=== PATIENT | male | born 1930 | race Caucasian/White ===

== ENCOUNTER 2017-11-20 09:23 | Inpatient (IN) | payer MEDICARE, BC ==
--- NOTE | 2017-11-20 10:14 | ED ---
General Adult HPI - General Chief complaint: Recheck/Abnormal Lab/Rx Stated complaint: ABNORMAL LABS Time Seen by Provider: 11/20/17 09:35 Source: patient, RN notes reviewed Mode of arrival: ambulatory Limitations: no limitations - History of Present Illness Initial comments: This is an 87-year-old male presents emergency Department because he was told to come in because his hemoglobin was low. Patient states she's felt fine lately he's been working outside he has not been short of breath and has had no chest pain or palpitations. Patient states he has not been feeling fatigued or weak. Patient states he hasn't seen a doctor for 5 years so he decided to go get a physical exam and when he did they aimee blood and told him to come on over here. Patient denies any black or bloody stools. Patient states he is completely asymptomatic and feels fine. - Related Data Home Medications Medication Instructions Recorded Confirmed Ciprofloxacin HCl [Cipro] 250 mg PO Q12HR 11/20/17 11/20/17 Allergies Allergy/AdvReac Type Severity Reaction Status Date / Time No Known Allergies Allergy Verified 11/20/17 10:31 Review of Systems ROS Statement: Those systems with pertinent positive or pertinent negative responses have been documented in the HPI. ROS Other: All systems not noted in ROS Statement are negative. Past Medical History Past Medical History: Eye Disorder, Hearing Disorder / Deafness Additional Past Medical History / Comment(s): HX OF HEAD INJURY-HIT BY BASEBALL IN HIGH SCHOOL- HAD "CONVULSION" & HAD PIECE OF SKULL REMOVED., ENLARGED PROSTATE, BILATERAL HEARING AIDS, RT CATARACTS & GLAUCOMA. History of Any Multi-Drug Resistant Organisms: None Reported Past Surgical History: Hernia Repair Additional Past Surgical History / Comment(s): INGUINAL HERNIA REPAIR X4. , PIECE OF SKULL REMOVED AFTER HEAD INJURY IN HIGH SCHOOL., LT CATARACT REMOVED Past Anesthesia/Blood Transfusion Reactions: No Reported Reaction Past Psychological History: No Psychological Hx Reported Smoking Status: Never smoker - Past Family History Sister(s) Family Medical History: Cancer Brother(s) Family Medical History: Cancer Additional Family Medical History / Comment(s): PROSTATE CANCER General Exam - General Exam Comments Initial Comments: GENERAL: Patient is well-developed and well-nourished. Patient is nontoxic and well- hydrated and is in no acute distress. ENT: Neck is soft and supple. No significant lymphadenopathy is noted. Oropharynx is clear. Moist mucous membranes. Neck has full range of motion without eliciting any pain. EYES: The sclera were anicteric and conjunctiva were pink and moist. Extraocular movements were intact and pupils were equal round and reactive to light. Eyelids were unremarkable. PULMONARY: Unlabored respirations. Good breath sounds bilaterally. No audible rales rhonchi or wheezing was noted. CARDIOVASCULAR: There is a regular rate and rhythm without any murmurs gallops or rubs. ABDOMEN: Soft and nontender with normal bowel sounds. No palpable organomegaly was noted. There is no palpable pulsatile mass. SKIN: Skin is pale NEUROLOGIC: Patient is alert and oriented x3. Cranial nerves II through XII are grossly intact. Motor and sensory are also intact. Normal speech, volume and content. Symmetrical smile. MUSCULOSKELETAL: Normal extremities with adequate strength and full range of motion. No lower extremity swelling or edema. No calf tenderness. LYMPHATICS: No significant lymphadenopathy is noted PSYCHIATRIC: Normal psychiatric evaluation. Normal interpersonal interactions appears functionally intact in deals appropriately with others. Limitations: no limitations Course Vital Signs 11/20/17 11/20/17 09:32 10:22 Temperature 97.8 F Pulse Rate 69 80 Respiratory 18 18 Rate Blood Pressure 122/49 135/66 O2 Sat by Pulse 100 100 Oximetry Medical Decision Making - Medical Decision Making EKG shows sinus rhythm with occasional PAC at 67 bpm VT interval is 180 QRSs 82 QT interval 400 QTC is 422. Patient's EKG shows no ST segment elevation or depression or T wave abnormalities are noted. Patient's hemoglobin is 4.5. I gave the patient 2 units of packed red blood cells. I spoke with Dr. Araujo admitted the patient I continued to transfusions on the floor. - Lab Data Result diagrams: 11/20/17 10:00 11/20/17 10:00 Lab Results 11/20/17 11/20/17 11/20/17 Range/Units 10:00 10:00 10:00 WBC 4.4 (3.8-10.6) k/uL RBC 3.30 L (4.30-5.90) m/uL Hgb 4.5 L* (13.0-17.5) gm/dL Hct 18.9 L* (39.0-53.0) % MCV 57.3 L (80.0-100.0) fL MCH 13.7 L (25.0-35.0) pg MCHC 23.8 L (31.0-37.0) g/dL RDW 18.6 H (11.5-15.5) % Plt Count 315 (150-450) k/uL PT (9.0-12.0) sec INR (<1.2) APTT (22.0-30.0) sec Sodium 139 (137-145) mmol/L Potassium 4.5 (3.5-5.1) mmol/L Chloride 110 H (98-107) mmol/L Carbon Dioxide 23 (22-30) mmol/L Anion Gap 6 mmol/L BUN 19 (9-20) mg/dL Creatinine 1.07 (0.66-1.25) mg/dL Est GFR (CKD-EPI)AfAm 72 (>60 ml/min/1.73 sqM) Est GFR (CKD-EPI)NonAf 63 (>60 ml/min/1.73 sqM) Glucose 80 (74-99) mg/dL Calcium 8.4 (8.4-10.2) mg/dL Magnesium 2.2 (1.6-2.3) mg/dL Total Bilirubin 0.7 (0.2-1.3) mg/dL AST 13 L (17-59) U/L ALT 25 (21-72) U/L Alkaline Phosphatase 56 (38-126) U/L Total Creatine Kinase 31 L (55-170) U/L Total Protein 5.6 L (6.3-8.2) g/dL Albumin 3.5 (3.5-5.0) g/dL 11/20/17 Range/Units 10:00 WBC (3.8-10.6) k/uL RBC (4.30-5.90) m/uL Hgb (13.0-17.5) gm/dL Hct (39.0-53.0) % MCV (80.0-100.0) fL MCH (25.0-35.0) pg MCHC (31.0-37.0) g/dL RDW (11.5-15.5) % Plt Count (150-450) k/uL PT 11.0 (9.0-12.0) sec INR 1.1 (<1.2) APTT 22.4 (22.0-30.0) sec Sodium (137-145) mmol/L Potassium (3.5-5.1) mmol/L Chloride (98-107) mmol/L Carbon Dioxide (22-30) mmol/L Anion Gap mmol/L BUN (9-20) mg/dL Creatinine (0.66-1.25) mg/dL Est GFR (CKD-EPI)AfAm (>60 ml/min/1.73 sqM) Est GFR (CKD-EPI)NonAf (>60 ml/min/1.73 sqM) Glucose (74-99) mg/dL Calcium (8.4-10.2) mg/dL Magnesium (1.6-2.3) mg/dL Total Bilirubin (0.2-1.3) mg/dL AST (17-59) U/L ALT (21-72) U/L Alkaline Phosphatase (38-126) U/L Total Creatine Kinase (55-170) U/L Total Protein (6.3-8.2) g/dL Albumin (3.5-5.0) g/dL Disposition Clinical Impression: Anemia Disposition: ADMITTED IP TO THIS HOSP Referrals: Stanford Osborne MD [Primary Care Provider] - 1-2 days Time of Disposition: 10:53
[2017-11-20 10:28] LABS: Anisocytosis Slight; Hypochromasia Marked; MCH 13.7 pg (25.0-35.0); MCHC 23.8 g/dL (31.0-37.0); MCV 57.3 fL (80.0-100.0); Mean Platelet Volume 8.6; Microcytosis Marked; Platelet Count 315 k/uL (150-450); RDW 18.6 % (11.5-15.5); WBC 4.4 k/uL (3.8-10.6)
[2017-11-20 10:33] LABS: HGB 4.5 gm/dL (13.0-17.5)
[2017-11-20 10:34] LABS: HCT 18.9 % (39.0-53.0)
[2017-11-20 10:37] LABS: Albumin 3.5 g/dL (3.5-5.0); Calcium 8.4 mg/dL (8.4-10.2); Magnesium 2.2 mg/dL (1.6-2.3); Potassium 4.5 mmol/L (3.5-5.1); Total Bilirubin 0.7 mg/dL (0.2-1.3); Total Protein 5.6 g/dL (6.3-8.2)
[2017-11-20 10:38] LABS: INR 1.1 (<1.2); Partial Thromboplastin Time 22.4 sec (22.0-30.0)
[2017-11-20] MEDS ORDERED: LORazepam 1 MG TAB PO STA (10:42)
[2017-11-20 10:46] LABS: Creatine Kinase 31 U/L (55-170)
[2017-11-20] MEDS ORDERED: SODIUM CHLORIDE 0.9% 1,000 ML IV ONE (10:53)
[2017-11-20 10:59] LABS: Creatine Kinase MB 0.7 ng/mL (0.0-2.4); Troponin I <0.012 ng/mL (0.000-0.034)
[2017-11-20 11:03] LABS: Band Neutrophils % 2 %; Eosinophils # (M) 0.09 k/uL (0-0.7); Large Platelets Present; Lymphocytes # (M) 0.97 k/uL (1.0-4.8); Monocytes # (M) 0.26 k/uL (0-1.0); Myelocytes # (M) 0.04 k/uL (0); Myelocytes % 1 %; Neutrophils % (M) 69 %; Nucleated Red Blood Cells 0 /100 WBC (0-0); Poikilocytosis (M) Present; Polychromasia Present; Target Cells Present; Total Cells Counted 200
[2017-11-20 15:47] LABS: Appearance,Urine Cloudy (Clear); Bilirubin,Urine Negative (Negative); Blood,Urine Trace (Negative); Color,Urine Light Yellow; Glucose,Urine (UA) Negative (Negative); Hyaline Casts,Urine 3 /lpf (0-2); Ketones,Urine Negative (Negative); Leukocyte Esterase,Urine Large (Negative); Mucus,Urine Rare /hpf; Nitrite,Urine Negative (Negative); PH, Urine 6.5 (5.0-8.0); Protein,Urine Negative (Negative); RBC,Urine 15 /hpf (0-5); Specific Gravity,Urine 1.006 (1.001-1.035); Squamous Epithelial Cell,Urine <1 /hpf (0-4); Urobilinogen,Urine <2.0 mg/dL (<2.0)
[2017-11-20 16:21] LABS: Anisocytosis Marked; Basophils # (A) 0.1 k/uL (0-0.2); Basophils % (A) 2 %; Eosinophils # (A) 0.1 k/uL (0-0.7); Eosinophils % (A) 3 %; Hypochromasia Marked; Lymphocytes # (A) 1.1 k/uL (1.0-4.8); Lymphocytes % (A) 27 %; MCH 16.5 pg (25.0-35.0); Mean Platelet Volume 7.8; Microcytosis Marked; Monocytes # (A) 0.6 k/uL (0-1.0); Monocytes % (A) 14 %; Neutrophils % (A) 51 %; Platelet Count 260 k/uL (150-450); Poikilocytosis Marked; RBC 3.77 m/uL (4.30-5.90)
[2017-11-20 16:25] LABS: HGB 6.2 gm/dL (13.0-17.5); RDW 26.8 % (11.5-15.5)
[2017-11-20 16:26] LABS: MCV 63.6 fL (80.0-100.0)
[2017-11-20] MEDS: PANTOPRAZOLE 40 MG/10 ML VIAL IVP SCH (16:30)
[2017-11-20] MEDS ORDERED: FUROSEMIDE 10 MG/ML 2 ML VIAL IV ONE (17:45)
[2017-11-20 19:10] LABS: Iron Saturation 2.31 (15.00-50.00)
[2017-11-20] MEDS ORDERED: LEVOFLOXACIN 500MG-D5W PMX 500 MG in DEXTROSE/WATER 1 100ML.BAG IVPB SCH (21:00)
[2017-11-20 22:19] LABS: Anisocytosis Marked; Basophils # (A) 0.1 k/uL (0-0.2); Basophils % (A) 2 %; Eosinophils # (A) 0.2 k/uL (0-0.7); Eosinophils % (A) 3 %; HCT 26.8 % (39.0-53.0); HGB 7.4 gm/dL (13.0-17.5); Hypochromasia Marked; Lymphocytes # (A) 1.3 k/uL (1.0-4.8); Lymphocytes % (A) 25 %; MCH 18.5 pg (25.0-35.0); MCHC 27.8 g/dL (31.0-37.0); MCV 66.5 fL (80.0-100.0); Mean Platelet Volume 7.3; Microcytosis Marked; Monocytes # (A) 0.6 k/uL (0-1.0); Monocytes % (A) 12 %; Neutrophils % (A) 56 %; Platelet Count 248 k/uL (150-450); Poikilocytosis Marked; RBC 4.02 m/uL (4.30-5.90); WBC 5.3 k/uL (3.8-10.6)
[2017-11-20 22:21] LABS: RDW 26.8 % (11.5-15.5)
--- NOTE | 2017-11-21 00:03 | P.HPIM ---
History of Present Illness H&P Date: 11/20/17 Chief Complaint: Abnormal lab with a low hemoglobin Patient is a 87-year-old male without significant past history and hard of hearing with bilateral hearing aids and cataracts was told to come to ER due to low hemoglobin. Patient was seen by his primary care physician and ordered routine CBC and was found to have a hemoglobin level IV.5. Otherwise Patient states he's felt fine lately he's been working outside he has not been short of breath and has had no chest pain or palpitations. Patient states he has not been feeling fatigued or weak. Patient states he hasn't seen a doctor for 5 years so he decided to go get a physical exam and when he did they aimee blood and told him to come on over here. Patient denies any black or bloody stools. Denied any dysuria or hematuria. Patient states he is completely asymptomatic and feels fine. FOBT is negative. Patient states that intermittently he noticed some dark- colored stools. No recent EGD or colonoscopy. MCV 57.3, RDW 18.6 UA showed large leukocyte esterase and WBCs and WBC clumps. Review of Systems Constitutional: Patient denies any fever or chills . No generalized weakness or weight loss. Abdomen: Patient denied nausea vomiting and diarrhea and abdominal pain. Cardiovascular: Patient denies any chest pain or short of breath no palpitations. Respiratory: patient denied any cough is from production. No shortness of breath Neurologic: Patient denied any numbness or tingling headache. Musculoskeletal: Patient denies any complaints of joint swelling or deformity. Skin: Negative Psychiatric: Negative Endocrine: No heat or cold intolerance. No recent weight gain. Genitourinary: No dysuria or hematuria. All other 14 point ROS negative except the above Past Medical History Past Medical History: Eye Disorder, Hearing Disorder / Deafness Additional Past Medical History / Comment(s): HX OF HEAD INJURY-HIT BY BASEBALL IN HIGH SCHOOL- HAD "CONVULSION" & HAD PIECE OF SKULL REMOVED., ENLARGED PROSTATE, BILATERAL HEARING AIDS, RT CATARACTS & GLAUCOMA. History of Any Multi-Drug Resistant Organisms: None Reported Past Surgical History: Hernia Repair Additional Past Surgical History / Comment(s): INGUINAL HERNIA REPAIR X4. , PIECE OF SKULL REMOVED AFTER HEAD INJURY IN HIGH SCHOOL., LT CATARACT REMOVED Past Anesthesia/Blood Transfusion Reactions: No Reported Reaction Past Psychological History: No Psychological Hx Reported Smoking Status: Never smoker - Past Family History Sister(s) Family Medical History: Cancer Brother(s) Family Medical History: Cancer Additional Family Medical History / Comment(s): PROSTATE CANCER Father Additional Family Medical History / Comment(s): Father was a smoker. He of lung disease at the age of 71 yrs. Mother Family Medical History: No Reported History Additional Family Medical History / Comment(s): Mother was healthy. Medications and Allergies Home Medications Medication Instructions Recorded Confirmed Type Ciprofloxacin HCl [Cipro] 250 mg PO Q12HR 11/20/17 11/20/17 History Allergies Allergy/AdvReac Type Severity Reaction Status Date / Time No Known Allergies Allergy Verified 11/20/17 10:31 Physical Exam Vitals: Vital Signs Temp Pulse Resp BP Pulse Ox 11/20/17 14:12 97.4 F L 62 16 141/62 97 11/20/17 14:01 97.2 F L 66 16 145/68 100 11/20/17 13:51 97.2 F L 64 16 144/69 100 11/20/17 13:19 97.9 F 77 18 161/75 95 11/20/17 12:20 97 F L 63 18 153/72 100 11/20/17 11:50 97.1 F L 69 16 142/66 100 11/20/17 11:40 97.4 F L 69 16 124/59 100 11/20/17 10:22 80 18 135/66 100 11/20/17 09:32 97.8 F 69 18 122/49 100 Intake and Output 11/19/17 11/20/17 11/20/17 22:59 06:59 14:59 Intake Total 310 Balance 310 Intake: Blood Product 310 As-1 Unit 0 [id number] As-1 Unit 310 [id number] Other: Weight 59.874 kg PHYSICAL EXAMINATION: Patient is lying in the bed comfortably, no acute distress, awake alert and oriented.. HEENT: Normocephalic. Neck is supple. Pupils reactive. Nostrils clear. Oral cavity is moist. Ears reveal no drainage. Neck reveals no JVD, carotid bruits, or thyromegaly. CHEST EXAMINATION: Trachea is central. Symmetrical expansion. Lung mondragon clear to auscultation and percussion. CARDIAC: Normal S1, S2 with no gallops. No murmurs ABDOMEN: Soft. Bowel sounds normal. No organomegaly. No abdominal bruits. Extremities: reveal no edema. No clubbing or cyanosis Neurologically awake, alert, oriented x3 with well-coordinated movements. No focal deficits noted Skin: No rash or skin lesions. Psychiatric: Coperative. Nonsuicidal Musculoskeletal: No joint swelling or deformity. Normal range of motion. Results CBC & Chem 7: 11/20/17 21:52 11/20/17 10:00 Labs: Abnormal Lab Results - Last 24 Hours (Table) 11/20/17 11/20/17 11/20/17 Range/Units 10:00 10:00 10:00 RBC 3.30 L (4.30-5.90) m/uL Hgb 4.5 L* (13.0-17.5) gm/dL Hct 18.9 L* (39.0-53.0) % MCV 57.3 L (80.0-100.0) fL MCH 13.7 L (25.0-35.0) pg MCHC 23.8 L (31.0-37.0) g/dL RDW 18.6 H (11.5-15.5) % Lymphocytes # (Manual) 0.97 L (1.0-4.8) k/uL Myelocytes # (Manual) 0.04 H (0) k/uL Chloride 110 H (98-107) mmol/L AST 13 L (17-59) U/L Total Creatine Kinase 31 L (55-170) U/L Total Protein 5.6 L (6.3-8.2) g/dL Crossmatch 11/20/17 Range/Units 10:00 RBC (4.30-5.90) m/uL Hgb (13.0-17.5) gm/dL Hct (39.0-53.0) % MCV (80.0-100.0) fL MCH (25.0-35.0) pg MCHC (31.0-37.0) g/dL RDW (11.5-15.5) % Lymphocytes # (Manual) (1.0-4.8) k/uL Myelocytes # (Manual) (0) k/uL Chloride (98-107) mmol/L AST (17-59) U/L Total Creatine Kinase (55-170) U/L Total Protein (6.3-8.2) g/dL Crossmatch See Detail Assessment and Plan Assessment: Severe anemia with hemoglobin level 4.5 likely due to iron deficiency and possible chronic blood loss anemia Microcytic anemia. Rule out iron deficiency Acute urinary tract infection Hearing disorder/deafness uses bilateral hearing aids Right cataracts and glaucoma BPH Plan: Patient was started on 2 units of PRBC transfusion. Monitor H&H. FOBT is negative. We will check iron level and B12 level and will start on supplement if needed. Patient will need GI workup as an outpatient. Continue with PPI. We will check post void residual. Follow-up urine culture reports. Continue with antibiotics in the form of Levaquin. Further recommendations based on the clinical course. Time with Patient: Greater than 30
[2017-11-21 07:21] LABS: Anisocytosis Marked; Basophils # (A) 0.1 k/uL (0-0.2); Basophils % (A) 1 %; Eosinophils # (A) 0.2 k/uL (0-0.7); Eosinophils % (A) 3 %; HCT 25.9 % (39.0-53.0); HGB 7.4 gm/dL (13.0-17.5); Hypochromasia Marked; Lymphocytes # (A) 1.2 k/uL (1.0-4.8); Lymphocytes % (A) 21 %; MCH 19.2 pg (25.0-35.0); MCHC 28.8 g/dL (31.0-37.0); MCV 66.8 fL (80.0-100.0); Mean Platelet Volume 7.7; Microcytosis Marked; Monocytes # (A) 0.7 k/uL (0-1.0); Monocytes % (A) 12 %; Neutrophils # (A) 3.4 k/uL (1.3-7.7); Neutrophils % (A) 61 %; Platelet Count 258 k/uL (150-450); Poikilocytosis Marked; RBC 3.87 m/uL (4.30-5.90); WBC 5.6 k/uL (3.8-10.6)
[2017-11-21 07:28] LABS: Calcium 8.4 mg/dL (8.4-10.2); Potassium 4.4 mmol/L (3.5-5.1)
[2017-11-21 07:33] LABS: RDW 27.1 % (11.5-15.5)
[2017-11-21] MEDS: PANTOPRAZOLE 40 MG/10 ML VIAL IVP SCH (09:02)
[2017-11-21] MEDS ORDERED: SODIUM FERRIC GLUCONAT-SUCROSE 125 MG in SODIUM CHLORIDE 0.9% 100 ML IVPB ONE (12:10)
[2017-11-21 16:51] VITALS: BP 116/57; PULSE 58; RESP 18; TEMP 97.3
[2017-11-22] MEDS ORDERED: PANTOPRAZOLE 40 MG TABLET PO SCH (09:00)
== END 2017-11-21 18:37 | disposition home or self-care (01) | DRG 812 ==
LOC: EC 09:23 → 6SEL 10:53
PROVIDERS: ADMIT Internal Medicine; ATTEND Internal Medicine
PROC: 30233N1 Transfusion of Nonautologous Red Blood Cells into Peripheral Vein, Percutaneous Approach (ICD-10-PCS; principal; 2017-11-20)
DX: D50.0 Iron deficiency anemia secondary to blood loss (chronic) (principal); N39.0 Urinary tract infection, site not specified; H40.9 Unspecified glaucoma; H91.90 Unspecified hearing loss, unspecified ear; N40.0 Benign prostatic hyperplasia without lower urinary tract symptoms; Z80.42 Family history of malignant neoplasm of prostate; H26.9 Unspecified cataract; Z98.42 Cataract extraction status, left eye; Z87.820 Personal history of traumatic brain injury; Z97.4 Presence of external hearing-aid
CPT/HCPCS: 36415; 80048; 80053; 81001; 82272; 82550; 82553; 82607; 82728; 83540; 83550; 83735; 84484; 85025; 85610; 85730; 86850; 86900; 86901; 86920; 87086; 96360; 96361; 96374; 99284

== ENCOUNTER → 2017-12-01 | Outpatient (CLI) | payer MEDICARE, BC ==
--- NOTE | 2017-12-07 13:19 | HM ---
HOLTER MONITOR REPORT The patient was monitored for 24 hours. The baseline rhythm is a sinus mechanism with normal conduction. The average rate 72 beats per minute, minimum 51, maximum 137 beats per minute. Ventricular ectopic activity was present in the form of rare single PVCs. Supraventricular ectopic activity was present in the form of rare single PACs and blocked PACs. No symptoms were reported. CONCLUSION: 1. Sinus mechanism baseline rhythm. 2. Rare ventricular ectopic activity. 3. Rare supraventricular ectopic activity. 4. No symptoms were reported. MMODL / IJN: [id number] /
== END | disposition home or self-care (01) ==
LOC: RADECHMAIN 12:13
PROVIDERS: ATTEND Family Medicine
DX: R00.1 Bradycardia, unspecified (principal)
CPT/HCPCS: 93225; 93226

== ENCOUNTER → 2018-01-16 | Day surgery (SDC) | payer MEDICARE, BC ==
[2018-01-11 10:28] VITALS: BMI 20.7
[~2018-01-16] MED LIST: SIMETHICONE 40 MG/0.6 ML DROPS 2,000 MG/30 ML BOTTLE PO ONE
== END ==
LOC: ORWHC2ENDO 06:44
PROVIDERS: ATTEND Internal Medicine Gastroenterology
DX: K63.3 Ulcer of intestine (principal); D64.9 Anemia, unspecified
CPT/HCPCS: 91110

== ENCOUNTER → 2018-02-07 | Outpatient (CLI) | payer MEDICARE, BC ==
[2018-02-07 16:36] LABS: Anisocytosis Slight; Basophils # (A) 0.1 k/uL (0-0.2); Basophils % (A) 1 %; Eosinophils # (A) 0.2 k/uL (0-0.7); Eosinophils % (A) 3 %; HCT 36.4 % (39.0-53.0); HGB 11.5 gm/dL (13.0-17.5); Hypochromasia Slight; Lymphocytes # (A) 1.5 k/uL (1.0-4.8); Lymphocytes % (A) 18 %; MCHC 31.6 g/dL (31.0-37.0); MCV 85.6 fL (80.0-100.0); Mean Platelet Volume 7.4; Monocytes # (A) 0.8 k/uL (0-1.0); Monocytes % (A) 10 %; Neutrophils # (A) 5.7 k/uL (1.3-7.7); Neutrophils % (A) 67 %; Platelet Count 243 k/uL (150-450); RBC 4.26 m/uL (4.30-5.90); RDW 16.7 % (11.5-15.5); WBC 8.5 k/uL (3.8-10.6)
== END | disposition home or self-care (01) ==
LOC: LABWHC1 16:02
PROVIDERS: ATTEND Internal Medicine Gastroenterology
DX: D50.9 Iron deficiency anemia, unspecified (principal)
CPT/HCPCS: 36415; 85025

== ENCOUNTER → 2018-08-10 | Outpatient (CLI) | payer MEDICARE, BC ==
--- NOTE | 2018-08-10 15:34 | US ---
EXAMINATION TYPE: US kidneys/renal and bladder DATE OF EXAM: 08/10/2018 COMPARISON: NONE CLINICAL HISTORY: R31.9 Hematuria. Microscopic hematuria EXAM MEASUREMENTS: Right Kidney: 11.1 x 4.4 x 5.0 cm Left Kidney: 11.0 x 5.6 x 5.5 cm Right Kidney: No hydronephrosis. Multiple cystic areas visualized, largest measuring 3.1 x 2.7 x 2.8 cm Left Kidney: No hydronephrosis. Multiple cystic areas visualized, largest measuring 1.6 x 1.8 x 1.1 c m Bladder: Multiple probable diverticulum visualized Bilateral Jets seen: No, jets not visualized IMPRESSION: 1. Multiple bladder diverticula. 2. Multiple simple cysts right kidney.
== END ==
LOC: RADUSWWP 14:55
PROVIDERS: ATTEND Urology
DX: N32.3 Diverticulum of bladder (principal); N28.1 Cyst of kidney, acquired
CPT/HCPCS: 76770